=== PATIENT | male | born 1995 | race Caucasian/White ===

== ENCOUNTER 2023-09-21 15:09 | Emergency (ER) | payer SELFPAY ==
[2023-09-21] MEDS ORDERED: DIPHENHYDRAMINE 50 MG/ML VIAL ONE (16:12)
[2023-09-21] MEDS ORDERED: LORazepam 2 MG/ML VIAL ONE (16:12)
[2023-09-21] MEDS ORDERED: HALOPERIDOL LACT 5 MG/ML INJ ONE (16:30)
[2023-09-21] MEDS ORDERED: NA CHLORIDE 0.9% 1,000 ML ONE (16:31)
[2023-09-21 16:51] LABS: Absolute Lymphocytes (CBC) 1.2 K/uL (0.7-4.9); Absolute Monocytes 1.2 K/uL (0.1-1.3); Absolute Neutrophil 8.7 K/uL (1.8-8.0); Basophils % 0.4 % (0-1.3); Eosinophils % 0.3 % (0-4.4); Hematocrit 41.9 % (39.6-49.0); Hemoglobin 14.8 g/dL (13.6-17.9); Lymphocytes % 10.3 % (15.3-44.8); MCH 29.7 pg (27.0-35.0); MCHC 35.3 g/dL (32.0-36.0); MCV 84.2 fL (80-100); MPV 8.2 fL (7.6-11.3); Nucleated Red Blood Cells % 0.1 % (0-0); Platelets 199 thou/uL (152-406); RBC Red Blood Cell Count 4.97 M/uL (4.33-5.43); Red Cell Distribution Width 12.9 % (12.1-15.2)
[2023-09-21 17:01] LABS: PT Prothrombin Time 13.1 SECONDS (9.5-12.5); PTT, Activated Partial Thromb 34.4 SECONDS (24.3-36.9); Protime INR 1.2
[2023-09-21 17:34] LABS: Barbiturates NEGATIVE (NEGATIVE); Benzodiazepines NEGATIVE (NEGATIVE); Cocaine NEGATIVE (NEGATIVE); METHAMPHETAM NEGATIVE (NEGATIVE); Methadone NEGATIVE (NEGATIVE); Opiates NEGATIVE (NEGATIVE); Phencyclidine NEGATIVE (NEGATIVE); THC Cannibis NEGATIVE (NEGATIVE)
[2023-09-21 17:34] LABS: ALT/SGPT 18 U/L (16-61); Albumin 3.8 g/dL (3.4-5.0); Albumin/Globulin Ratio 1.3 (1.1-1.8); Alkaline Phosphatase 82 U/L (45-117); Anion Gap 9.1 mEq/L (5.0-15.0); BUN Blood Urea Nitrogen 9 mg/dL (7-18); Bicarbonate 26 mEq/L (21-32); Bilirubin Direct 0.3 mg/dL (0-0.2); Bilirubin Indirect, Calculated 0.9 mg/dL (0.2-0.8); Bilirubin Total 1.2 mg/dL (0.2-1.0); Globulin 2.9 g/dL (2.3-3.5); Glomerular Filtration Rate 101 ml/min (=/>90); Glucose Level 87 mg/dL (74-106); Potassium 3.1 mEq/L (3.5-5.1); Protein, Total 6.7 g/dL (6.4-8.2); Sodium Level 138 mEq/L (136-145)
[2023-09-21 17:35] LABS: AST/SGOT < 10 U/L (15-37)
--- NOTE | 2023-09-21 17:47 | RAD REPORT ---
EXAM DESCRIPTION: CT - Head Brain Wo Cont - 09/21/2023 5:12 pm CLINICAL HISTORY: CONFUSED COMPARISON: No comparisons TECHNIQUE: Noncontrast head CT images were obtained without IV contrast. Multiplanar reformats were generated and reviewed. All CT scans are performed using dose optimization technique as appropriate and may include automated exposure control or mA/KV adjustment according to patient size. FINDINGS: No intracranial hemorrhage, mass, or edema. Midline structures are unremarkable. Normal ventricular caliber for age. Hill-white matter differentiation is preserved, without evidence of acute infarct. No abnormal extra- axial fluid collections. Mastoid air cells and visualized portions of the paranasal sinuses are clear. No acute bony findings. IMPRESSION: No evidence of an acute intracranial process.
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
--- NOTE | 2023-09-21 18:08 | EDPHYS ---
Physician Documentation [facility] Name: Shar Aragon Age: 28 yrs Sex: Male : 1995 Arrival Date: 09/21/2023 Time: 15:09 Bed 20 Private MD: ED Physician Gareth Melton HPI: 09/20 16:12 This 28 yrs old Male presents to ER via Ambulatory with complaints of Anxiety.ec2 16:12 Patient arrives today for evaluation due to concern of possible anxiety and general ec2 concern. Patient reports he feels afraid however is unclear what exactly he feels afraid of. Patient reports no SI or HI. Patient reports no recent or previous episodes of self-harm or wanting to harm other individuals. Patient reports no falls injuries or trauma, denies any fevers or chills, no nausea vomiting or diarrhea.. Historical: - Allergies: 15:47 No Known Allergies; iw - Home Meds: 15:47 None [Active]; iw - PMHx: 15:47 None; iw - PSHx: 15:47 Cholecystectomy; iw - Immunization history:: Adult Immunizations up to date. - Infectious Disease History:: Denies. - Social history:: Smoking status: Patient denies any tobacco usage or history of. ROS: 16:13 Constitutional: as per hpi ec2 Exam: 16:13 Constitutional: GEN: NAD Head: atraumatic Eyes: EOMI Ears: External ears are ec2 normal. CV: regular rate LUNGS: no respiratory distress ABD: non-distended SKIN: no evidence of rashes MSK: no evidence of trauma NEURO: moves all extremities equally. Cranial nerves II through XII intact, strength intact all 4 extremities. Psych: Anxious individual who is cooperative, denies SI or HI, no delusions, no external stimuli communicating with him Vital Signs: 15:47 BP 125 / 88; Pulse 74; Resp 16; Temp 97.6; Pulse Ox 100% on R/A; iw 17:42 BP 125 / 82; Pulse 61; Resp 16; Pulse Ox 98% on R/A; mb9 MDM: 15:53 Patient medically screened. ec2 16:13 Data reviewed: vital signs. ED course: Patient arrives today due to general concern. ec2 Examination remarkable for well-appearing nontoxic dividual is otherwise in no acute distress with denies SI or HI on examination. Will obtain lab work, CT imaging, treat the patient's symptoms as well. Evaluate for process such electrolyte disturbances, intracranial mass, arrhythmia.. 16:59 ED course: EKG independently reviewed and interpreted by me, shows normal sinus rhythm, ec2 rate of 94, no acute ST segment elevations, intervals are nonconcerning. . 17:59 ED course: Tylenol level undetectable, metabolic profile shows slight hypokalemia with ec2 a potassium of 3.1. Liver profile nonactionable, CT scan of the head shows no acute intracranial process, alcohol level and UDS is negative. CBC nonactionable. . 18:07 ED course: On reassessment patient reports that he was having some relationship issues ec2 and states he feels markedly better. Will discharge home, presentation consistent with anxiety, will prescribe Atarax as needed. Return precautions given.. 05 16:06 Order name: Acetaminophen; Complete Time: 17:58 ec2 09/20 16:06 Order name: Basic Metabolic Panel; Complete Time: 17:58 ec2 09/20 16:06 Order name: CBC with Diff; Complete Time: 17:16 ec2 09/20 16:06 Order name: ETOH Level; Complete Time: 17:58 ec2 09/20 16:06 Order name: Hepatic Function; Complete Time: 17:58 ec2 09/20 16:06 Order name: PT-INR; Complete Time: 17:16 ec2 09/20 16:06 Order name: Ptt, Activated; Complete Time: 17:16 ec2 09/20 16:06 Order name: Salicylate; Complete Time: 18:01 ec2 09/20 16:06 Order name: Urine Drug Screen; Complete Time: 17:58 ec2 09/20 16:06 Order name: CT Head Brain wo Cont; Complete Time: 17:58 ec2 09/20 16:06 Order name: EKG - Nurse/Tech; Complete Time: 16:53 ec2 09/20 16:06 Order name: IV Saline Lock; Complete Time: 16:53 ec2 12 16:06 Order name: Labs collected and sent; Complete Time: 16:53 ec2 09/20 16:06 Order name: Suicide Screening ([place]); Complete Time: 16:53 ec2 Administered Medications: 16:45 Drug: Ativan IVP 2 mg IVP once Route: IVP; Site: left antecubital; mb9 17:43 Follow up: Response: No adverse reaction mb9 16:48 Drug: Haloperidol IVP 5 mg IVP once Route: IVP; Site: left antecubital; mb9 17:43 Follow up: Response: No adverse reaction mb9 16:52 Drug: diphenhydrAMINE IVP 25 mg IVP once Route: IVP; Site: left antecubital; mb9 17:43 Follow up: Response: No adverse reaction mb9 Disposition Summary: 09/21/23 18:07 Discharge Ordered Notes: Location: Home ec2 Condition: Stable ec2 Diagnosis - Anxiety disorder, unspecified ec2 Followup: ec2 - With: Private Physician - When: - Reason: Re-evaluation by your physician Discharge Instructions: - Discharge Summary Sheet ec2 - Panic Attack ec2 Forms: - Medication Reconciliation Form ec2 - Antibiotic Education ec2 - Prescription Opioid Use ec2 - Patient Portal Instructions ec2 - Leadership Thank You Letter ec2 Prescriptions: - Hydroxyzine HCl 25 mg Oral Tablet - take 1 tablet ORAL route every 6 hours As needed; 30 tablet; Refills: 0, ec2 Product Selection Permitted Signatures: Dispatcher [employer] Jannette Robb RN RN iw Breneman, Mary Beth, RN RN mb9 Gareth Melton MD MD ec2 Corrections: (The following items were deleted from the chart) 15:47 15:47 PSHx: None; [facility] 16:06 16:06 Head Brain Wo Cont+CT.RAD.BRZ ordered. EDMS EDMS 16:07 16:07 ACETAMINOPHEN+C.LAB.BRZ ordered. EDMS EDMS 16:07 16:07 BASIC METABOLIC PANEL+C.LAB.BRZ ordered. EDMS EDMS 16:07 16:07 CBC+H.LAB.BRZ ordered. EDMS EDMS 16:07 16:07 ETHANOL+C.LAB.BRZ ordered. EDMS EDMS 16:07 16:07 HEPATIC FUNCTION+C.LAB.BRZ ordered. EDMS EDMS 16:07 16:07 PROTIME (+INR)+COAG.LAB.BRZ ordered. EDMS EDMS 16:07 16:07 PTT, ACTIVATED+COAG.LAB.BRZ ordered. EDMS EDMS 16:07 16:07 SALICYLATE+C.LAB.BRZ ordered. EDMS EDMS 16: 16:07 URINE DRUG SCREEN+UC.LAB.BRZ ordered. EDMS EDMS
[2023-09-21 18:33] VITALS: BP 125/82; TEMP 97.6; O2SAT 98
--- NOTE | 2023-09-22 13:19 | EKG ---
Test Date: 2023-09-21 Test Time: 16:48:53 [employer] Equipment Operator: DEEJAY MEASUREMENT RESULTS: Intervals: Rate: 94 VA: 164 QRSD: 94 QT: 348 QTc: 435 Daniels: P: 70 VA: 164 QRS: 90 T: 40 INTERPRETIVE STATEMENTS: Normal sinus rhythm Normal ECG No previous ECG available for comparison Electronically Signed On 09-22-23 13:17:03 CDT by Sarbjit Meza
== END 2023-09-21 18:16 | disposition home or self-care (01) ==
LOC: ER 15:09
DX: F41.9 Anxiety disorder, unspecified (principal)
CPT/HCPCS: 36415; 70450; 80048; 80076; 80143; 80179; 80307; 82077; 85025; 85610; 85730; 93005; 96374; 96375; 99285; J1200; J1630; J7030

== ENCOUNTER 2024-12-29 03:26 | Emergency (ER) | payer SELFPAY ==
--- NOTE | 2024-12-29 04:47 | RAD REPORT ---
INDICATION: CHEST PAIN COMPARISON: No existing relevant imaging studies are available FINDINGS: Single frontal view of the chest was obtained. SUPPORT DEVICES: None HEART/MEDIASTINUM: Cardiomediastinal contours are normal. LUNGS/PLEURA: Lungs are clear. No pleural effusion or pneumothorax. OTHER: No other significant findings. IMPRESSION: No acute findings. Electronically signed by: Hayden Hernández DO 12/29/2024 04:11 AM CDT RP NR Due to temporary technical issues with the PACS/Aibo reporting system, reports are being giovanna d by the in-house radiologist without review as a courtesy to ensure prompt reporting. The interpreting radiologist is fully responsible for the content of the report. Transcribed Date/Time: 12/29/2024 4:47 AM
--- NOTE | 2024-12-29 04:50 | ER ---
Nurse's Notes [facility] Name: Shar Aragon Age: 29 yrs Sex: Male : 1995 Arrival Date: 12/29/2024 Time: 03:26 Bed 16 Private MD: Diagnosis: Presentation: 12/29 04:07 Chief complaint: Patient states: SOB SINCE LAST NIGHT (WORSE WHEN HE TAKES A DEEP br2 BREATH), LOWER BACK PAIN ....NAUSEA/VOMITING X3. PT STATES HE ATE 3-6 PEANUTS WITH SHELL 2 DAYS AND IS WORRIED THIS IS CAUSING HIM TO FEEL SOB. Coronavirus screen: Client denies travel out of the [place] in the last 14 days. Ebola Screen: Patient denies exposure to infectious person. Initial Sepsis Screen: Does the patient meet any 2 criteria? No. Patient's initial sepsis screen is negative. Does the patient have a suspected source of infection? No. Patient's initial sepsis screen is negative. Risk Assessment: Do you want to hurt yourself or someone else? Patient reports no desire to harm self or others. Onset of symptoms was December 28, 2024. 04:07 Method Of Arrival: Ambulatory br2 04:07 Acuity: JOSSE 3 br2 Triage Assessment: 04:09 General: Appears in no apparent distress. comfortable, Behavior is calm, cooperative. br2 Pain: Complains of pain in xiphoid area and mid-sternal area. Respiratory: Reports shortness of breath cough that is dry, Airway is patent Respiratory effort is even, unlabored, Respiratory pattern is regular, symmetrical, Onset: The symptoms/episode began/occurred yesterday, the patient has mild shortness of breath. Historical: - Allergies: 04:09 No Known Allergies; br2 - Home Meds: 04:09 None [Active]; br2 - PSHx: 04:09 Cholecystectomy; br2 - Immunization history:: Adult Immunizations not up to date. - Infectious Disease History:: Denies. - Social history:: Smoking status: Reported history of juuling and/or vaping. Patient/guardian denies using alcohol, street drugs. Vital Signs: 04:07 BP 141 / 96; Pulse 89; Resp 18; Temp 97.1; Pulse Ox 100% ; Weight 63.5 kg; Height 5 ft. br2 9 in. ; Pain 1/10; 04:07 Body Mass Index 20.67 (63.50 kg, 175.26 cm) br2 04:07 Pain Scale: Adult br2 ED Course: 03:30 Patient arrived in ED. gm2 03:35 Logan Linares MD is Attending Physician. sp4 03:57 XRAY Chest (1 view) In Process Unspecified. EDMS 04:09 Triage completed. br2 04:09 Arm band placed on right wrist. br2 Administered Medications: No medications were administered Outcome: 04:49 Patient left the ED. br2 Signatures: Dispatcher [employer] EDMS Logan Linares MD MD sp4 Marjan Wiseman gm2 [place] Westfall RN RN br2 Corrections: (The following items were deleted from the chart) 04:13 04:07 Chief complaint: Patient states: SOB SINCE LAST NIGHT, LOWER BACK PAIN br2 ....NAUSEA/VOMITING X3 br2
--- NOTE | 2024-12-29 04:50 | EDPHYS ---
Physician Documentation [facility] Name: Shar Aragon Age: 29 yrs Sex: Male : 1995 Arrival Date: 12/29/2024 Time: 03:26 Bed 16 Private MD: ED Physician Logan Linares HPI: 12/29 03:35 This 29 yrs old Male presents to ER via Unassigned with complaints of sp4 Breathing Difficulty. 20:02 Patient has eloped from the waiting area prior to my examination.. sp4 Historical: - Allergies: 04:09 No Known Allergies; br2 - Home Meds: 04:09 None [Active]; br2 - PSHx: 04:09 Cholecystectomy; br2 - Immunization history:: Adult Immunizations not up to date. - Infectious Disease History:: Denies. - Social history:: Smoking status: Reported history of juuling and/or vaping. Patient/guardian denies using alcohol, street drugs. Vital Signs: 04:07 BP 141 / 96; Pulse 89; Resp 18; Temp 97.1; Pulse Ox 100% ; Weight 63.5 kg; Height 5 ft. br2 9 in. ; Pain 1/10; 04:07 Body Mass Index 20.67 (63.50 kg, 175.26 cm) br2 04:07 Pain Scale: Adult br2 MDM: 04:15 Medical Screening Exam initiated sp4 20:02 Data reviewed: nurses notes. sp4 12/29 03:36 Order name: XRAY Chest (1 view) sp4 12/29 03:36 Order name: Cardiac monitoring sp4 12/29 03:36 Order name: EKG - Nurse/Tech sp4 12/29 03:36 Order name: IV Saline Lock sp4 12/29 03:36 Order name: Labs collected and sent sp4 12/29 03:36 Order name: O2 Per Protocol sp4 12/29 03:36 Order name: O2 Sat Monitoring sp4 Administered Medications: No medications were administered Disposition: 20:03 Chart complete. sp4 Disposition Summary: 12/29/24 04:49 Eloped Notes: Disposition: before being seen by provider br2 Reason: other br2 Signatures: Dispatcher [employer] EDMS Logan Linares MD MD sp4 [place], [place], RN RN br2
[2024-12-29 09:32] VITALS: BP 141/96; TEMP 97.1; O2SAT 100
== END 2024-12-29 04:49 | disposition left against medical advice (07) ==
LOC: ER 03:26
DX: Z53.21 Procedure and treatment not carried out due to patient leaving prior to being seen by health care provider (principal)
CPT/HCPCS: 71045